=== PATIENT | female | born 1965 | race Caucasian/White ===

== ENCOUNTER 2017-08-24 03:29 | Emergency (ER) | payer OTHER ==
[~2017-08-24] VITALS: Ht 162.6 cm; Wt 106.8 kg
[~2017-08-24 03:29] MED LIST: FUROSEMIDE40 MG PO; KLOR-CON M1010 MEQ PO; LEVOTHYROXINE75 MCG PO; LISINOPRIL5 MG PO; NORCO 5/3251 TABLET PO; PREDNISONE10 M1 PO; VALIUM5 MG PO
[2017-08-24 05:18] LABS: BASOPHIL (%) 0.6 % (0-1); EOSINOPHIL (%) 1.8 % (0-5); EOSINOPHIL COUNT 0.1 K/uL (0-0.3); HEMATOCRIT 39.1 % (36.0-46.0); HEMOGLOBIN 13.4 G/DL (11.9-15.5); IMMATURE GRANULOCYTE (%) 0.3 % (0.0-0.7); LYMPHOCYTE (%) 29.4 % (15-42); MCH 30.1 PG (29.0-34.0); MCHC 34.3 G/DL (30.0-36.0); MCV 87.9 FL (83-99); MONOCYTE (%) 6.3 % (3-12); MONOCYTE COUNT 0.4 K/uL (0-0.8); NEUTROPHIL (%) 61.6 % (45-76); NEUTROPHIL COUNT 4.2 K/uL (1.8-6.4); PLATELET COUNT 303 K/uL (156-360); RBC DIS.WIDTH-CV 12.4 % (11.8-14.6); RBC DIS.WIDTH-SD 39.6 % (39-53); RED BLOOD COUNT 4.45 M/uL (3.80-5.20); WHITE BLOOD COUNT 6.8 K/uL (4.1-10.2)
[2017-08-24 05:28] LABS: ALBUMIN 4.3 g/dL (3.2-4.8); CHLORIDE 107 mEq/L (99-109); SODIUM 144 mEq/L (136-147)
[2017-08-24 05:30] LABS: GLUCOSE 101 mg/dL (70-99); TOTAL PROTEIN 7.5 g/dL (6.4-8.3)
[2017-08-24 05:32] LABS: TOTAL BILIRUBIN 0.4 mg/dL (0.0-1.0)
[2017-08-24 05:33] LABS: ALKALINE PHOSPHATASE 140 IU/L (3-129)
[2017-08-24 05:34] LABS: CREATININE 1.2 mg/dL (0.6-1.3); GFR ESTIMATE (CALCULATED) 50 mL/min/
[2017-08-24 05:35] LABS: AST (GOT) 28 IU/L (2-34); UREA NITROGEN (BUN) 15 mg/dL (9-23)
[2017-08-24 05:37] LABS: ALT (GPT) 55 IU/L (3-49); LIPASE 73 U/L (1.0-51.0)
[2017-08-24] MEDS ORDERED: TYLENOL WITH C1 EACH PO (07:26)
[2017-08-24] MEDS ORDERED: MOTRIN600 MG PO (07:26)
[2017-08-24 07:28] LABS: APPEARANCE CLEAR ((CLEAR)); BILIRUBIN NEGATIVE; BLOOD NEGATIVE; COLOR STRAW ((YELLOW)); GLUCOSE (STRIP) NEGATIVE; KETONES NEGATIVE; LEUKOCYTES SMALL; NITRITE NEGATIVE; PROTEIN (STRIP) NEGATIVE; SPECIFIC GRAVITY 1.005 (1.000-1.030); UROBILINOGEN 0.2 MG/DL (0.2-1.0)
[2017-08-24 07:34] LABS: BACTERIA RARE /HPF; EPITHELIAL CELLS 1+ /HPF; MUCUS NONE SEEN /LPF; RED BLOOD CELLS 0-5 /HPF (0-5); UCUL ADDED? NO; WHITE BLOOD CELLS 0-5 /HPF (0-5)
[2017-08-24] MEDS ORDERED: KEFLEX500 MG PO (07:38)
[2017-08-24 08:15] VITALS: BP 120/75
== END 2017-08-24 08:16 | disposition home or self-care (01) ==
LOC: EME 03:29
PROVIDERS: Emergency Medicine
DX: N13.2 Hydronephrosis with renal and ureteral calculous obstruction (principal); M51.26 Other intervertebral disc displacement, lumbar region; E87.6 Hypokalemia; I10 Essential (primary) hypertension; F41.9 Anxiety disorder, unspecified
CPT/HCPCS: 72128; 72131; 74177; 80053; 81003; 83690; 85025; 99281; 99285; J0696; J7030